=== PATIENT | female | born 1955 | race Caucasian/White ===

== ENCOUNTER 2017-08-22 10:58 | Observation (INO) | payer BC, MEDICAID ==
--- NOTE | 2017-08-22 11:49 | ED PDOC ---
HPI:STROKE - Historian Historian: Patient - Onset Onset: Months (Several) - Timing Timing: Intermittent - Notes: Notes:: Ms. Coronel is a 62 year old female who presents to the ED complaining of left arm pain for several months intermittently. Reports pain started on scapula and radiates down today associated Paresthesias. Denies any headache, weakness, change in vision or speech, falls, traumas. PMD: Gary Duran Past Medical History Reviewed: Historical Data, Nursing Documentation, Vital Signs Vital Signs: Last Vital Signs Temp 98.0 F 08/22/17 11:13 Pulse 79 08/22/17 11:13 Resp 16 08/22/17 11:13 BP 148/80 08/22/17 11:13 Pulse Ox 99 08/22/17 11:13 - Medical History PMH: HTN, Hyperlipidemia - Family History Family History: States: Unknown Family Hx - Social History Current smoker - smoking cessation education provided: No Alcohol: None Drugs: Denies - Allergies Allergies/Adverse Reactions: Allergies Allergy/AdvReac Type Severity Reaction Status Date / Time Penicillins Allergy RASH Verified 08/22/17 11:13 Review of Systems ROS Statement: Except As Marked, All Systems Reviewed And Found Negative Constitutional: Negative for: Weakness Eyes: Negative for: Vision Change Musculoskeletal: Positive for: Arm Pain (Left Arm Pain started on scapula and radiates down assocaited with parethesias) Neurological: Negative for: Headache, Other (change in speech) Physical Exam - Reviewed Nursing Documentation Reviewed: Yes Vital Signs Reviewed: Yes - Physical Exam Appears: Positive for: Well, Non-toxic Head Exam: Positive for: ATRAUMATIC, NORMAL INSPECTION, NORMOCEPHALIC Skin: Positive for: Normal Color, Warm, Dry Eye Exam: Positive for: Normal appearance, EOMI, PERRL ENT: Positive for: Normal ENT Inspection Neck: Positive for: Normal Cardiovascular/Chest: Positive for: Regular Rate, Rhythm Respiratory: Positive for: Normal Breath Sounds. Negative for: Respiratory Distress Gastrointestinal/Abdominal: Positive for: Normal Exam Back: Positive for: Normal Inspection Extremity: Positive for: Normal ROM, Capillary Refill (less than 2 seconds). Negative for: Deformity Neurologic/Psych: Positive for: Alert, Oriented (x 3). Negative for: Motor/ Sensory Deficits - Laboratory Results Result Diagrams: 08/22/17 11:51 08/22/17 11:51 - ECG O2 Sat by Pulse Oximetry: 99 Medical Decision Making Medical Decision Making: Time: 11:42 Impression(s): Left Arm Paresthesias Plan: - CT Cervical Spine w/o contrast - CT Head w/o Contrast - EKG - CMP - Lipid Panel - Troponin I - CBC - Toradol 30 mg IV Triglycerides Level 349 mg/DL [High] Scribe Attestation: Documented by Olaf Alvarado, acting as a scribe for Pj Lim III, DO Provider Scribe Attestation: All medical record entries made by the Scribe were at my direction and personally dictated by me. I have reviewed the chart and agree that the record accurately reflects my personal performance of the history, physical exam, medical decision making, and the department course for this patient. I have also personally directed, reviewed, and agree with the discharge instructions and disposition. Disposition - Disposition Forms: [facility] (Lithuanian)
[2017-08-22 11:57] LABS: BASO % 0.4 % (0.0-2.0); EOS # 0.2 K/uL (0.0-0.7); EOS % 2.5 % (0.0-4.0); HEMOGLOBIN 13.4 g/dL (12.0-16.0); LYMPH # 2.7 K/uL (1.0-4.3); MEAN CORPUSCULAR HEMOGLOBIN 31.1 pg (27.0-31.0); MEAN CORPUSCULAR HGB CONC 34.5 g/dL (33.0-37.0); MEAN PLATELET VOLUME 8.9 fl (7.2-11.7); MONO # 0.5 K/uL (0.0-0.8); MONO % 8.7 % (0.0-10.0); NEUT # 2.8 K/uL (1.8-7.0); NEUT % 45.4 % (50.0-75.0); NRBC % 0.1 % (0.0-0.0); RBC 4.31 Mil/uL (3.80-5.20); RED CELL DISTRIBUTION WIDTH 12.2 % (11.5-14.5); WHITE BLOOD COUNT 6.2 K/uL (4.8-10.8)
[2017-08-22 12:04] LABS: ALB/GLOB RATIO 1.2 (1.0-2.1); ALBUMIN 4.2 g/dL (3.5-5.0); ALT/SGPT 54 U/L (9-52); AST/SGOT 21 U/L (14-36); BLOOD UREA NITROGEN 21 mg/dl (7-17); CALCIUM 9.6 mg/dL (8.4-10.2); GFR AFRICAN-AMERICAN > 60; GFR NON-AFRICAN AMERICAN > 60; HDL CHOLESTEROL 44 MG/DL (30-70)
[2017-08-22 12:15] LABS: LDL CHOLESTEROL 88 mg/dL (0-129)
--- NOTE | 2017-08-22 13:20 | CT ---
PROCEDURE: CT scan cervical spine 08/22/2017 HISTORY: Trauma COMPARISON: No prior study available for comparison TECHNIQUE: Contiguous helical/transaxial computed tomography images were obtained of the cervical spine without the use of intravenous contrast. Coronal and sagittal reformatted images were created and reviewed. Radiation dose: Total exam DLP = 488.97 mGy-cm. This CT exam was performed using one or more of the following dose reduction techniques: Automated exposure control, adjustment of the mA and/or kV according to patient size, and/or use of iterative reconstruction technique. . FINDINGS: VERTEBRAE: Current study reveals no acute compression fractures no retropulsed fragments. Vertebral bodies exhibit normal stature. Vertebral bodies and facets normally aligned. Mild multilevel degenerative spondylosis. At the C4-C5 level, there is relatively adequate disc height. Tiny central and bilateral disc bulge indents the ventral surface of the thecal sac nearly reaching but not compressing the ventral surface of the cord. Central canal is quite capacious. Exit foramina adequate. At the C5-C6 level, there is disc space narrowing with subchondral cystic changes and small irregular ridge disc complex contiguous with hypertrophic uncovertebral joints of. The there is some minor irregular or flattening of the ventral surface of the thecal sac. Central canal is marginal to minimally narrowed. The uncovertebral joints also hypertrophic with bilateral foraminal narrowing left greater than right. At the C6-C7 level, there is also mild disc space narrowing with small osteophytic ridge disc complex contiguous with mildly hypertrophic uncovertebral joints. The changes result in mild flattening of the ventral surface of the thecal sac centrally and to the left more so than right. Central canal appears adequate. Left exit foramen is narrowed. Right exit foramen is adequate. Paraspinal soft tissues unremarkable. Thyroid gland is heterogeneous in part due to crossing streak and beam hardening artifact however small underlying nodules not excluded and therefore followup ultrasound recommended. IMPRESSION: No evidence of acute fractures. Minor degenerative spondylosis most notably affecting the C5-C6 and C6-C7 levels. The slightly heterogeneous thyroid gland for which a follow-up thyroid ultrasound suggested as detailed above.
--- NOTE | 2017-08-22 13:33 | CT ---
PROCEDURE: CT scan brain dated 08/22/2017 HISTORY: Left arm pain COMPARISON: Comparison made with prior CT scan brain 08/02/2013. TECHNIQUE: Axial computed tomography images were obtained through the head/brain without intravenous contrast. Radiation dose: Total exam DLP = 834.64 mGy-cm. This CT exam was performed using one or more of the following dose reduction techniques: Automated exposure control, adjustment of the mA and/or kV according to patient size, and/or use of iterative reconstruction technique. FINDINGS: HEMORRHAGE: No acute parenchymal, subarachnoid or extra-axial hemorrhage. BRAIN: Mild diffuse/confluent chronic periventricular white matter ischemic changes. Mild generalized volume loss with more localized bilateral frontal and parietal atrophic changes. VENTRICLES: No obstructive hydrocephalus CALVARIUM: There are no acute calvarial fractures. There is a lobulated lucency along the inner table posterior superior parietal calvarium consistent with arachnoid granulation PARANASAL SINUSES: Unremarkable as visualized. No significant inflammatory changes. MASTOID AIR CELLS: Unremarkable as visualized. No inflammatory changes. OTHER FINDINGS: None. IMPRESSION: No acute intracranial hemorrhage. Mild periventricular white matter ischemic changes. Mild generalized volume loss with more localized bilateral frontal and parietal mitch cortical atrophic changes.
--- NOTE | 2017-08-22 17:58 | CARD ---
APPROVED REPORT EKG Measurement Heart [id number] CT [id number] <Conclusion> Normal sinus rhythm Normal ECG
--- NOTE | 2017-08-22 19:04 | CP.PCM.HP ---
History of Present Illness - History of Present Illness History of Present Illness: CC: arm pain HPI: 62F PMH HTN and HLD, presents to the ED today for worsening shoulder pain which started several months ago. Today she states the pain is moderate to severe in nature and newly radiates down her arm, with a tingling like sensation. She denies any weakness or focal deficits. On exam this pain is reproducible with palpation to transverse processes of thoracic vertebra. CT head and C Spine negative. MRI and MRA pending. CVA, TIA less likely. May likely be discharged home after observation with follow up PCP in about one week. ROS: per HPI all other systems reviewed and negative PMSH: HTN, HLD FH: denies SH: denies tobacco, ETOH, IVDU Allergies: PCN Present on Admission - Present on Admission Any Indicators Present on Admission: No Past Patient History - Past Social History Alcohol: None Drugs: Denies - CARDIAC Hx Cardiac Disorders: Yes - PSYCHIATRIC Hx Substance Use: No Meds Allergies/Adverse Reactions: Allergies Allergy/AdvReac Type Severity Reaction Status Date / Time Penicillins Allergy RASH Verified 08/22/17 11:13 Physical Exam - Constitutional Appears: Non-toxic, No Acute Distress - Head Exam Head Exam: ATRAUMATIC, NORMOCEPHALIC - Eye Exam Eye Exam: EOMI, Normal appearance, PERRL Pupil Exam: NORMAL ACCOMODATION - ENT Exam ENT Exam: Mucous Membranes Moist, Normal Oropharynx - Neck Exam Neck exam: Positive for: Full Rom, Normal Inspection, Tenderness - Respiratory Exam Respiratory Exam: Clear to Auscultation Bilateral, NORMAL BREATHING PATTERN - Cardiovascular Exam Cardiovascular Exam: RRR, +S1, +S2 - GI/Abdominal Exam GI & Abdominal Exam: Normal Bowel Sounds, Soft. absent: Mass, Organomegaly, Tenderness - Extremities Exam Extremities exam: Positive for: normal capillary refill, normal inspection, pedal pulses present - Back Exam Back exam: absent: CVA tenderness (L), CVA tenderness (R) Additional comments: REPRODUCIBLE SHOULDER PAIN / TINGLING WITH PALPATION TO TRANSVERSE PROCESS THORACIC VERTEBRA - Neurological Exam Neurological exam: Alert, Oriented x3 - Psychiatric Exam Psychiatric exam: Normal Affect, Normal Mood - Skin Skin Exam: Dry, Warm Results - Vital Signs Recent Vital Signs: Last Vital Signs Temp 98.2 F 08/22/17 18:35 Pulse 78 08/22/17 18:35 Resp 18 08/22/17 18:35 BP 137/79 08/22/17 18:35 Pulse Ox 99 08/22/17 18:35 - Labs Result Diagrams: 08/22/17 11:51 08/22/17 11:51 Labs: Laboratory Results - last 24 hr 08/22/17 08/22/17 11:51 11:51 WBC 6.2 RBC 4.31 Hgb 13.4 Hct 38.8 MCV 90.0 MCH 31.1 H MCHC 34.5 RDW 12.2 Plt Count 220 MPV 8.9 Neut % (Auto) 45.4 L Lymph % (Auto) 43.0 H [place] % (Auto) 8.7 Eos % (Auto) 2.5 Baso % (Auto) 0.4 Neut # (Auto) 2.8 Lymph # (Auto) 2.7 [place] # (Auto) 0.5 Eos # (Auto) 0.2 Baso # (Auto) 0.0 Sodium 143 Potassium 4.4 Chloride 102 Carbon Dioxide 27 Anion Gap 18 BUN 21 H Creatinine 0.7 Est GFR ( Amer) > 60 Est GFR (Non-Af Amer) > 60 Random Glucose 93 Calcium 9.6 Total Bilirubin 0.4 AST 21 ALT 54 H Alkaline Phosphatase 76 Troponin I < 0.0120 Total Protein 7.7 Albumin 4.2 Globulin 3.5 Albumin/Globulin Ratio 1.2 Triglycerides 349 H Cholesterol 174 LDL Cholesterol Direct 88 HDL Cholesterol 44 Assessment & Plan - Assessment and Plan (Free Text) Plan: 62F PMH HTN and HLD, presents to the ED today for worsening shoulder pain which started several months ago. Today she states the pain is moderate to severe in nature and newly radiates down her arm, with a tingling like sensation. She denies any weakness or focal deficits. On exam this pain is reproducible with palpation to transverse processes of thoracic vertebra. CT head and C Spine negative. MRI and MRA reports pending. CVA/TIA less likely. May be discharged home after observation with follow up PCP in about one week. Musculoskeletal Pain Somatic Dysfunction of Upper Thoracic Spine Patient will likely benefit from NSAIDs Follow up with PCP in one week
[2017-08-23 08:27] VITALS: O2SAT 97
[2017-08-23 12:21] VITALS: BP 116/69; PULSE 71; RESP 18; TEMP 98.1
--- NOTE | 2017-08-23 12:31 | MRI ---
PROCEDURE: MRI BRAIN WITHOUT CONTRAST HISTORY: L arm pain/numbness COMPARISON: Unenhanced head CT 08/22/2017 TECHNIQUE: Multiplanar, multisequence MR images of the brain were obtained without intravenous contrast enhancement. FINDINGS: HEMORRHAGE: None DWI: No evidence of an acute or early subacute infarction. BRAIN PARENCHYMA: Diffuse cerebral atrophy is reiterated with chronic microangiopathy also reiterated though better detailed on the current MRI than prior CT. There are no suspicious interval findings. There is no mass effect and corticomedullary differentiation remains good. No suspicious extra-axial fluid collection identified with posterior fossa contents and midline brain anatomy unremarkable appearing grossly, with the exception of a nearly empty sella. VENTRICLES: Unremarkable. No hydrocephalus. CRANIUM: Unremarkable. ORBITS: Grossly unremarkable. PARANASAL SINUSES/MASTOIDS: Bilateral maxillary sinus retention cysts or polyps noted. VASCULAR SYSTEM: Skull base flow voids intact. OTHER FINDINGS: None. IMPRESSION: No definite suspicious intracranial findings with the current examination reiterating age related neuro degenerative changes as described above.
--- NOTE | 2017-08-23 12:36 | MRI ---
PROCEDURE: Magnetic Resonance Angiography Brain HISTORY: L arm numbness COMPARISON: None available. TECHNIQUE: 3D time of flight MR angiography of the intracranial arteries was performed. Rotating maximum intensity projection images were generated. FINDINGS: INTERNAL CAROTID ARTERIES: Unremarkable. The skull base, petrous, cavernous and supraclinoid segments are bilaterally widely patient. ANTERIOR CEREBRAL ARTERIES: Unremarkable. A1 and A2 segments are widely patent. Smaller distal branches unremarkable, as visualized. MIDDLE CEREBRAL ARTERIES: Unremarkable. M1 and M2 segments are widely patent. Perisylvian branches grossly symmetric. POSTERIOR CIRCULATION: Basilar Artery: Unremarkable. Distal Vertebral Arteries: The distal right vertebral artery is slightly hypoplastic with an unremarkable appearing distal left vertebral artery. Posterior Cerebral Arteries: Unremarkable. Posterior Inferior Cerebellar Arteries: Unremarkable. ANEURYSM/ VASCULAR MALFORMATIONS: None. OTHER FINDINGS: None. IMPRESSION: There is robust blood flow appreciated at the kiana of [place] and more distal branches throughout MR angiography of the brain. A mildly hypoplastic right distal vertebral arteries appreciated within unremarkable basilar artery and distal left vertebral artery.
--- NOTE | 2017-08-23 12:47 | MRI ---
PROCEDURE: MR Angiography of the neck without contrast HISTORY: L arm numbness COMPARISON: None available. TECHNIQUE: 3D [id number] angiography of the neck was performed. Rotating maximum intensity projection images of the cervical carotid and vertebral arteries were generated. The origins of the common carotid arteries were not visualized, which is a limitation inherent to the non-contrast time of flight technique. FINDINGS: RIGHT CAROTID ARTERIES: Common Carotid Artery: No significant stenosis identified. Carotid Bifurcation: Trace atherosclerotic plaque is suggested. Internal Carotid Artery:No significant stenosis identified. External Carotid Artery (proximal branches): No stenosis identified. LEFT CAROTID ARTERIES: Common Carotid Artery: No significant stenosis identified. Carotid Bifurcation: Trace atherosclerotic plaque is suggested. Internal Carotid Artery:No significant stenosis identified. External Carotid Artery (proximal branches): No stenosis identified. VERTEBRAL ARTERIES: The bilateral cervical vertebral arteries appear patent with left vertebral artery appearing slightly larger than the right overall. OTHER FINDINGS: None. IMPRESSION: No significant common or internal carotid artery stenosis in the neck as discussed above.
--- NOTE | 2017-08-23 16:04 | CP.PCM.DIS ---
Provider - Provider Date of Admission: 08/22/17 15:22 Attending physician: Bebe Freeman DO Primary care physician: Dr. Gary Duran Time Spent in preparation of Discharge (in minutes): 15 Hospital Course - Lab Results Lab Results: Most Recent Lab Values WBC 6.2 K/uL (4.8-10.8) 08/22/17 11:51 RBC 4.31 Mil/uL (3.80-5.20) 08/22/17 11:51 Hgb 13.4 g/dL (12.0-16.0) 08/22/17 11:51 Hct 38.8 % (34.0-47.0) 08/22/17 11:51 MCV 90.0 fl (81.0-99.0) 08/22/17 11:51 MCH 31.1 pg (27.0-31.0) H 08/22/17 11:51 MCHC 34.5 g/dL (33.0-37.0) 08/22/17 11:51 RDW 12.2 % (11.5-14.5) 08/22/17 11:51 Plt Count 220 K/uL (130-400) 08/22/17 11:51 MPV 8.9 fl (7.2-11.7) 08/22/17 11:51 Neut % (Auto) 45.4 % (50.0-75.0) L 08/22/17 11:51 Lymph % (Auto) 43.0 % (20.0-40.0) H 08/22/17 11:51 [place] % (Auto) 8.7 % (0.0-10.0) 08/22/17 11:51 Eos % (Auto) 2.5 % (0.0-4.0) 08/22/17 11:51 Baso % (Auto) 0.4 % (0.0-2.0) 08/22/17 11:51 Neut # (Auto) 2.8 K/uL (1.8-7.0) 08/22/17 11:51 Lymph # (Auto) 2.7 K/uL (1.0-4.3) 08/22/17 11:51 [place] # (Auto) 0.5 K/uL (0.0-0.8) 08/22/17 11:51 Eos # (Auto) 0.2 K/uL (0.0-0.7) 08/22/17 11:51 Baso # (Auto) 0.0 K/uL (0.0-0.2) 08/22/17 11:51 Sodium 143 mmol/l (132-148) 08/22/17 11:51 Potassium 4.4 MMOL/L (3.6-5.0) 08/22/17 11:51 Chloride 102 mmol/L (98-107) 08/22/17 11:51 Carbon Dioxide 27 mmol/L (22-30) 08/22/17 11:51 Anion Gap 18 (10-20) 08/22/17 11:51 BUN 21 mg/dl (7-17) H 08/22/17 11:51 Creatinine 0.7 mg/dl (0.7-1.2) 08/22/17 11:51 Est GFR ( Amer) > 60 08/22/17 11:51 Est GFR (Non-Af Amer) > 60 08/22/17 11:51 Random Glucose 93 mg/dL (65-105) 08/22/17 11:51 Calcium 9.6 mg/dL (8.4-10.2) 08/22/17 11:51 Total Bilirubin 0.4 mg/dl (0.2-1.3) 08/22/17 11:51 AST 21 U/L (14-36) 08/22/17 11:51 ALT 54 U/L (9-52) H 08/22/17 11:51 Alkaline Phosphatase 76 U/L (38-126) 08/22/17 11:51 Troponin I < 0.0120 ng/mL (0.00-0.120) 08/22/17 11:51 Total Protein 7.7 G/DL (6.3-8.2) 08/22/17 11:51 Albumin 4.2 g/dL (3.5-5.0) 08/22/17 11:51 Globulin 3.5 gm/dL (2.2-3.9) 08/22/17 11:51 Albumin/Globulin Ratio 1.2 (1.0-2.1) 08/22/17 11:51 Triglycerides 349 mg/DL (0-149) H 08/22/17 11:51 Cholesterol 174 mg/dL (0-199) 08/22/17 11:51 LDL Cholesterol Direct 88 mg/dL (0-129) 08/22/17 11:51 HDL Cholesterol 44 MG/DL (30-70) 08/22/17 11:51 - Hospital Course Hospital Course: 62 F with PMH HTN and HLD, presented to the ED with worsening left shoulder pain which started several months ago. Today she stated the pain is moderate to severe in nature radiating down to her arm, with a tingling like sensation. She denied any weakness or focal deficits. On exam pain was reproducible with palpation to transverse processes of thoracic vertebra. CT head and C Spine negative. MRI head showed no acute pathology and MRA head and neck were normal . Patient was placed under observation overnight . At present feeling better . Will discharge patient home Outpatient PT NSAIDs or Tylenol for pain follow up with PMD in 1 week DX Musculoskeletal Pain, radiculopathy Discharge Exam - Head Exam Head Exam: ATRAUMATIC, NORMOCEPHALIC - Eye Exam Eye Exam: EOMI, Normal appearance, PERRL Pupil Exam: NORMAL ACCOMODATION - ENT Exam ENT Exam: Mucous Membranes Moist, Normal Exam - Neck Exam Neck exam: Full Rom, Normal Inspection - Respiratory Exam Respiratory Exam: Clear to PA & Lateral, NORMAL BREATHING PATTERN. absent: Rales, Rhonchi, Wheezes - Cardiovascular Exam Cardiovascular Exam: REGULAR RHYTHM, RRR, +S1, +S2. absent: JVD - GI/Abdominal Exam GI & Abdominal Exam: Normal Bowel Sounds, Soft. absent: Distended, Guarding, Rebound, Tenderness - Rectal Exam Rectal Exam: Deferred - Extremities Exam Extremities exam: normal capillary refill, normal inspection, pedal pulses present - Back Exam Back exam: CVA tenderness (L) - Neurological Exam Neurological exam: Alert, CN II-XII Intact, Oriented x3, Reflexes Normal - Psychiatric Exam Psychiatric exam: Normal Affect, Normal Mood - Skin Skin Exam: Dry, Intact, Normal Color, Warm Discharge Plan - Follow Up Plan Condition: GOOD Disposition: HOME/ ROUTINE Patient education suggested?: Yes Instructions: Shoulder Pain (DC) Additional Instructions: follow up with pmd in 1 week Referrals: Gary Duran MD [Staff Provider] -
== END 2017-08-23 14:19 | disposition home or self-care (01) ==
LOC: H.ER 10:58 → H.ERHOLD 15:22 → H.TEL 18:49
PROVIDERS: ADMIT Student in an Organized Health Care Education/Training Program; ATTEND Student in an Organized Health Care Education/Training Program
DX: M25.512 Pain in left shoulder (principal); M54.10 Radiculopathy, site unspecified; E78.5 Hyperlipidemia, unspecified; I10 Essential (primary) hypertension; Z88.0 Allergy status to penicillin
CPT/HCPCS: 70450; 70544; 70547; 70551; 72125; 80053; 80061; 84484; 85025; 93005; 99285; G0378